=== PATIENT | female | born 1965 | race Caucasian/White ===

== ENCOUNTER 2024-08-06 10:45 | Emergency (ER) | payer SELFPAY ==
[~2024-08-06] VITALS: Ht 162.6 cm; Wt 77.0 kg
[~2024-08-06 10:45] MED LIST: CARB200C7 PO
[2024-08-06 10:54] VITALS: O2SAT 99
[2024-08-06 11:21] LABS: BASOPHILS % 1.1 % (0.0-2.0); EOSINOPHILS % 6.6 % (0.0-5.0); HEMATOCRIT. 33.5 % (36.0-48.0); HEMOGLOBIN. 11.1 g/dL (12.0-16.0); LYMPHOCYTES % 40.8 % (20.0-50.0); MEAN CORPUSCULAR HEMOGLOBIN 28.3 pg (28.0-32.0); MEAN CORPUSCULAR HGB CONC 33.2 g/dL (31.0-37.0); MEAN CORPUSCULAR VOLUME 85.2 fL (81.0-99.0); MEAN PLATELET VOLUME 7.5 fl (7.4-10.4); MONOCYTES % 9.1 % (2.0-8.0); NEUTROPHILS % 42.4 % (40.0-76.0); PLATELET 244 x1000/uL (130-400); RED BLOOD CELL COUNT 3.93 mill/uL (4.2-5.4); RED CELL DISTRIBUTION WIDTH 13.8 % (11.6-14.6); WHITE BLOOD COUNT 6.4 x1000/uL (4.5-11.0)
[2024-08-06 11:31] LABS: CALCIUM 9.8 mg/dL (8.7-10.4); POTASSIUM 3.9 mEq/L (3.5-5.1)
[2024-08-06 11:36] LABS: CREATININE 1.4 mg/dL (0.6-1.0)
[2024-08-06 12:28] LABS: TROPONIN I HIGH SENSITIVITY < 4 ng/L (3.0-34)
[2024-08-06] MEDS: CARBAMAZEPINE 100MG TABLET CHEW PO ONE (12:40)
[2024-08-06 14:23] VITALS: BP 128/78; PULSE 74; RESP 18; TEMP 36.6; O2SAT 100
== END 2024-08-06 14:26 | disposition home or self-care (01) ==
LOC: ER 10:45
DX: R55 Syncope and collapse (principal); R56.9 Unspecified convulsions; F11.90 Opioid use, unspecified, uncomplicated; Z79.899 Other long term (current) drug therapy
CPT/HCPCS: 80048; 85025; 84484; 36415; 70450; 93005; 99284; Z7610